=== PATIENT | male | born 1980 | race Caucasian/White ===

== ENCOUNTER → 2017-03-08 | Outpatient (CLI) | payer OTHER ==
[~2017-03-08] VITALS: Ht 190.5 cm; Wt 152.7 kg
[2017-03-08 16:01] VITALS: BP 133/78; PULSE 102; Ht 190.5 cm; Wt 152.7 kg
== END | disposition home or self-care (01) ==
LOC: C.NEUR 15:00
PROVIDERS: ATTEND Physician Assistant
DX: G47.30 Sleep apnea, unspecified (principal)

== ENCOUNTER → 2017-06-04 | Outpatient (CLI) | payer OTHER ==
[~2017-06-04] MED LIST: OPTIRAY 320 IV PRN
--- NOTE | 2017-06-04 11:25 | DIAGNOSTIC IMAGING REPORT ---
ABDOMEN AND PELVIS CT WITH AND WITHOUT IV CONTRAST, UROGRAM PROTOCOL CT DOSE: 2469.81 mGycm HISTORY: HEMATURIA, URINARY URGENCY, NO INFECTION, HX SMOKING TECHNIQUE: Multiaxial CT images of the abdomen and pelvis were performed both before and after the use of intravenous contrast to evaluate the urinary system. Maximal intensity projection images were performed at the workstation by the radiologist. A dose lowering technique was utilized adhering to the principles of ALARA. COMPARISON STUDY: None. FINDINGS: There is a 5 mm stone within the upper pole of the right kidney. No left renal calculi. No ureteral or bladder calculi. No hydronephrosis. No suspicious filling defects seen within the opacified bilateral renal collecting systems, ureters, or bladder. Of note, the distal left ureter is not opacified resulting in suboptimal evaluation of this location. The bladder is only partially opacified. Mild dependent changes seen within the lung bases posteriorly and trace pleural effusions bilaterally. No fractures within the visualized osseous structures. Hepatic stenosis. The gallbladder, spleen, adrenal glands, and pancreas are unremarkable. No bowel wall thickening or obstruction. Normal appendix. No retroperitoneal lymphadenopathy. IMPRESSION: 1. A 5 mm stone within the upper pole of the right kidney. No ureteral stones. No hydronephrosis. 2. No suspicious filling defects seen within the opacified bilateral renal collecting systems, ureters, or bladder. 3. Hepatic steatosis. Electronically signed by: Willard Miller M.D. 06/04/2017 11:23 AM Dictated Date/Time: 06/04/2017 11:15 AM
== END | disposition home or self-care (01) ==
LOC: C.CTS 10:40
PROVIDERS: ATTEND Nurse Practitioner Family
DX: N20.0 Calculus of kidney (principal); R30.0 Dysuria; R31.9 Hematuria, unspecified; Z87.891 Personal history of nicotine dependence

== ENCOUNTER → 2017-10-15 | Outpatient (CLI) | payer OTHER | END | disposition home or self-care (01) | LOC: C.LAB1850 13:48 | PROVIDERS: ATTEND Family Medicine | DX: Z13.220 Encounter for screening for lipoid disorders (principal) ==

== ENCOUNTER 2022-04-21 13:55 | Inpatient (IN) ==
--- NOTE | 2022-04-21 15:22 | ED Triage Note ---
Date of Service April 21, 2022 History of Present Illness This patient was briefly evaluated while in triage. An abbreviated physical exam was performed. This patient is a 42-year-old Male with fever, chills and body aches. Started 9- 10am today. Hx kidney stones. Physical Exam General: With blanket around shoulders, shaking. HEART: RRR LUNGS: CTA Initial orders for labs and / or imaging were placed and patient was placed in the waiting area until a bed is available. Please see further documentation for the full ED course.
--- NOTE | 2022-04-21 15:49 | XRay Report ---
XR chest 1V portable HISTORY: 42 years-old Male Fever/chills acute fever with chills COMPARISON: Chest radiograph 6 11/03/2021 TECHNIQUE: Portable AP view of the chest FINDINGS: Cardiac silhouette is enlarged. Interstitial coarsening is likely technical from technique and patien t body habitus. No pneumothorax, pleural effusion or lobar airspace consolidation. The bones appear n ormal. IMPRESSION: No acute process. ACT 112: Negative or not required by law. The above report was generated using voice recognition software. It may contain grammatical, syntax o r spelling errors. Electronically signed by: Mohan Suarez M.D. 04/21/2022 3:48 PM
[2022-04-21] MEDS ORDERED: ACETAMINOPHEN 500 MG TAB ONE (15:55)
[2022-04-21 16:21] LABS: Basophils # (auto) 0.01 K/uL (0-0.2); Basophils % (auto) 0.1 %; Eosinophils % (auto) 0.5 %; Hematocrit (blood only) 46.9 % (42-52); Hemoglobin 16.6 g/dL (14.0-18.0); Immature Granulocytes # (auto) 0.05 K/uL (0.00-0.02); Immature Granulocytes % (auto) 0.3 %; Lymphocytes # (auto) 1.07 K/uL (1.2-3.4); Lymphocytes % (auto) 5.7 %; Mean Corpuscular Hemoglobin 31.3 pg (25-34); Mean Corpuscular Hgb Conc 35.4 g/dL (32-36); Mean Corpuscular Volume 88.3 fL (80-100); Mean Platelet Volume 9.5 fL (7.4-10.4); Monocytes # (auto) 1.35 K/uL (0.11-0.59); Monocytes % (auto) 7.1 %; Neutrophils # (auto) 16.33 K/uL (1.4-6.5); Neutrophils % (auto) 86.3 %; Platelet Count 235 K/uL (130-400); RDW Coefficient of Variation 12.8 % (11.5-14.5); RDW Standard Deviation 41.4 fL (36.4-46.3); Red Blood Count 5.31 M/uL (4.7-6.1); White Blood Count 18.91 K/uL (4.8-10.8)
[2022-04-21 16:30] LABS: Albumin Globulin Ratio 1.6 (0.9-2); Albumin Level 4.4 gm/dl (3.4-5.0); BUN Creatinine Ratio 18.4 (10-20); Bilirubin,Total 0.8 mg/dl (0.2-1.0); Est GFR (Non-African American) 94.1 ml/min; Globulin 2.7 gm/dl (2.5-4.0); Potassium 3.8 mmol/L (3.5-5.1); Total Protein 7.1 gm/dl (6.0-8.3)
[2022-04-21] MEDS ORDERED: IBUPROFEN 600 MG TAB PO STA (17:03)
[2022-04-21 17:11] LABS: Lyme Ab IgG w/WB Rflx Negative (Negative); Lyme Ab IgM w/WB Rflx Negative (Negative)
[2022-04-21 17:27] LABS: Influenza A virus by PCR Negative (Neg); Influenza B virus by PCR Negative (Neg); RSV by PCR Negative (Neg); SARS CoV2 RNA(COVID-19) InHosp NEGATIVE (Negative)
[2022-04-21] MEDS ORDERED: CEFEPIME 2,000 MG/20 ML VIAL IV STA (17:27)
[2022-04-21] MEDS ORDERED: SODIUM CHLORIDE 0.9% 1000ML 2,000 ML IV ONE (17:35)
--- NOTE | 2022-04-21 17:35 | Emergency Department Note ---
History of Present Illness General Chief complaint: Fever Stated complaint: CHILLS, SHOULDER PAIN, FEVER Time Seen by Provider: 04/21/22 16:48 History of Present Illness Maximum Pain Intensity: 11 42-year-old male presents to the ED with a chief complaint of a fever. The patient states that his symptoms developed today while he was at work. He has some associated nausea. He is not sure where his fever is coming from. The patient denies any upper respiratory symptoms. He complains of a mild intermittent headache. He also complains of myalgias. Denies any sick contacts. Denies any tick exposures or bites. He does report some redness in the back of his left leg. He states that he has been admitted in the past for an infection behind his left leg. He denies any abdominal pains. No flank or back pains. No urinary symptoms. No vomiting or diarrhea. No photosensitivity . Home Medications Medication Instructions Recorded Confirmed Type cholecalciferol (vitamin D3) 25 25 mcg PO QAM 03/08/20 01/21/22 History mcg (1,000 unit) tablet (Vitamin D3) lisinopril 20 1 tab PO QAM 03/08/20 01/21/22 History mg-hydrochlorothiazide 12.5 mg tablet multivitamin 1 tab PO QAM 03/08/20 01/21/22 History metformin 500 mg tablet 1,000 mg PO BID 10/24/21 01/21/22 History Allergies Allergy/AdvReac Type Severity Reaction Status Date / Time No Known Allergies Allergy Verified 01/21/22 12:22 Past Med/Surg History Medical History History of COVID-19 10/20/21 [place]-ASYMPTOMATIC (DONE IN [place] [facility]) AUGUST 2020 TESTED +/NO SYMPTOMS History of kidney stones Hypertension Morbid obesity with BMI of 45.0-49.9, adult Prediabetes ORAL MEDS Sleep apnea USES CPAP Temporomandibular joint disorder RIGHT SIDE CLICKS-NO LOCKING Surgical History H/O adenoidectomy History of anesthesia reaction SLOW TO WAKE UP, LOW OXYGEN POST OP-NEEDED OXYGEN--pt states happened after shoulder/knee surgery History of arthroscopy KNEE-right History of colonoscopy 2020 History of cystoscopy x2--STONE REMOVAL--last 10/2021 History of myringotomy Hx of shoulder surgery RT Hx of vasectomy Family History Mother Family history of diabetes mellitus Hypertension Father Coronary heart disease Hypertension Family hx of colon cancer Brother Family hx of colon cancer Other Heart disease No family history of adverse response to anesthesia Stroke Social History Smoking Status: Former smoker Tobacco Type: Cigarettes Age Started Using Tobacco: 18; Age Quit Using Tobacco: 28; packs per day: 1; Years Smoked: 10; Second Hand Exposure: No; Hx Alcohol Use: Yes Alcohol type: beer and hard liquor Hx Substance Use: No Preferred Language: Lithuanian Communication Ability: Effective Manager Performance Required: No Beliefs That Will Affect Care: None Current Living Situation: Spouse and Family current occupational status: employed current occupation: [employer] Feels Safe at Home: Yes Assistive Devices: CPAP Review of Systems A total of 10 systems reviewed and were otherwise negative Physical Exam Vital Signs Vital Signs - 24 hr 04/21/22 15:17 04/21/22 16:00 04/21/22 17:00 Temperature 36.8 C 39.2 C H 39.7 C H Temperature Source Temporal Artery Scan Oral Oral Pulse Rate 120 H Pulse Rate [Left Radial] 118 H 125 H Pulse Rhythm [Left Radial] Regular Regular Pulse Strength [Left Radial] Normal Normal Respiratory Rate 18 20 20 Respiratory Effort / Characteristics Non-Labored Spontaneous Non-Labored Non-Labored Respiratory Depth Normal Normal Normal Respiratory Pattern Regular Regular Blood Pressure 207/147 H Blood Pressure [Left Arm] 151/102 H 151/80 H Blood Pressure Mean 167 Blood Pressure Mean [Left Arm] 118 103 Blood Pressure Position Sitting Blood Pressure Position [Left Arm] Lying Lying Pulse Oximetry 98 98 94 Oxygen Delivery Method Room Air Room Air Room Air Sepsis Recent Fever Within 48 Hours No Sepsis New/Unexplained Change in Mental Status N/A Sepsis Action Taken by Nursing No Action Required CONSTITUTIONAL/VITAL SIGNS: Reviewed / noted above. GENERAL: Non-toxic in appearance. INTEGUMENTARY: Warm, dry, and Bear [place]. HEAD: Normocephalic. EYES: without scleral icterus or trauma. ENT/OROPHARYNX: clear and moist. LYMPHADENOPATHY/NECK: Is supple without lymphadenopathy or meningismus. RESPIRATORY: Clear to auscultation bilaterally. No increased work of breathing. CARDIOVASCULAR: Regular rate and rhythm. GI/ABDOMEN: Soft and nontender. No organomegaly or pulsatile mass. EXTREMITIES: Warm and well perfused. The patient's left posterior leg just below the calf reveals erythema and increased warmth. There is also a small scratch overlying the area. BACK: No CVA tenderness. NEUROLOGICAL: Intact without focal deficits. PSYCHIATRIC: normal affect. MUSCULOSKELETAL: Normally developed with good muscle tone. TRIAGE NURSING DOCUMENTATION REVIEWED. Course Administered Medications Discontinued Medications Acetaminophen (Acetaminophen 500 Mg Tab) Confirm Administered Dose 1,000 mg .ROUTE .STK-MED ONE Stop: 04/21/22 15:56 Last Admin: 04/21/22 16:03 Dose: 1,000 mg Documented by: [id number] Ibuprofen (Ibuprofen 600 Mg Tab) 600 mg PO NOW STA Stop: 04/21/22 17:04 Last Admin: 04/21/22 17:18 Dose: 600 mg Documented by: [id number] Medical Decision Making Differential Diagnosis Differential includes viral illness, influenza, streptococcal pharyngitis, meningitis, pneumonia, sinusitis, UTI, pyelonephritis, otitis media. Medical Records Attestation: I reviewed the patient's medical records. Home Medications Current Medication List: was personally reviewed by me Laboratory Data Attestation: I reviewed the patient's lab results. Result diagrams: 04/21/22 15:53 04/21/22 15:53 Lab Results 04/21/22 04/21/22 04/21/22 Range/Units 15:53 15:53 15:53 WBC 18.91 H (4.8-10.8) K/uL RBC 5.31 (4.7-6.1) M/uL Hgb 16.6 (14.0-18.0) g/dL Hct 46.9 (42-52) % MCV 88.3 (80-100) fL MCH 31.3 (25-34) pg MCHC 35.4 (32-36) g/dL RDW Std Deviation 41.4 (36.4-46.3) fL RDW Coeff of Nolan 12.8 (11.5-14.5) % Plt Count 235 (130-400) K/uL MPV 9.5 (7.4-10.4) fL Immature Gran % (Auto) 0.3 % Neut % (Auto) 86.3 % Lymph % (Auto) 5.7 % Hand % (Auto) 7.1 % Eos % (Auto) 0.5 % Baso % (Auto) 0.1 % Neut # (Auto) 16.33 H (1.4-6.5) K/uL Lymph # (Auto) 1.07 L (1.2-3.4) K/uL Hand # (Auto) 1.35 H (0.11-0.59) K/uL Eos # (Auto) 0.10 (0-0.5) K/uL Baso # (Auto) 0.01 (0-0.2) K/uL Immature Gran # (Auto) 0.05 H (0.00-0.02) K/uL Sodium 138 (136-145) mmol/L Potassium 3.8 (3.5-5.1) mmol/L Chloride 102 (98-107) mmol/L Carbon Dioxide 28 (21-32) mmol/L Anion Gap 8 (3-11) BUN 18 (6-23) mg/dl Creatinine 0.98 (0.6-1.4) mg/dl Est Cr Clr Drug Dosing 139.0 ml/min Est GFR ( Amer) 109.0 ml/min Est GFR (Non-Af Amer) 94.1 ml/min BUN/Creatinine Ratio 18.4 (10-20) Glucose 108 H (70-99(Fasting)) mg/dl Lactate (0.4-2.0) mmol/L Calcium 10.0 (8.5-10.1) mg/dl Total Bilirubin 0.8 (0.2-1.0) mg/dl AST 46 H (13-39) U/L ALT 64 H (7-52) U/L Alkaline Phosphatase 64 (34-104) U/L Total Protein 7.1 (6.0-8.3) gm/dl Albumin 4.4 (3.4-5.0) gm/dl Globulin 2.7 (2.5-4.0) gm/dl Albumin/Globulin Ratio 1.6 (0.9-2) Lyme Disease IgG Ab Negative (Negative) Lyme Disease IgM Ab Negative (Negative) SARS-CoV-2 (PCR) (Negative) Influenza Type A (PCR) (Neg) Influenza Type B (PCR) (Neg) RSV (RT-PCR) (Neg) 07/05/22 07/05/22 Range/Units 15:53 15:53 WBC (4.8-10.8) K/uL RBC (4.7-6.1) M/uL Hgb (14.0-18.0) g/dL Hct (42-52) % MCV (80-100) fL MCH (25-34) pg MCHC (32-36) g/dL RDW Std Deviation (36.4-46.3) fL RDW Coeff of Nolan (11.5-14.5) % Plt Count (130-400) K/uL MPV (7.4-10.4) fL Immature Gran % (Auto) % Neut % (Auto) % Lymph % (Auto) % Hand % (Auto) % Eos % (Auto) % Baso % (Auto) % Neut # (Auto) (1.4-6.5) K/uL Lymph # (Auto) (1.2-3.4) K/uL Hand # (Auto) (0.11-0.59) K/uL Eos # (Auto) (0-0.5) K/uL Baso # (Auto) (0-0.2) K/uL Immature Gran # (Auto) (0.00-0.02) K/uL Sodium (136-145) mmol/L Potassium (3.5-5.1) mmol/L Chloride (98-107) mmol/L Carbon Dioxide (21-32) mmol/L Anion Gap (3-11) BUN (6-23) mg/dl Creatinine (0.6-1.4) mg/dl Est Cr Clr Drug Dosing ml/min Est GFR ( Amer) ml/min Est GFR (Non-Af Amer) ml/min BUN/Creatinine Ratio (10-20) Glucose (70-99(Fasting)) mg/dl Lactate 3.4 H* (0.4-2.0) mmol/L Calcium (8.5-10.1) mg/dl Total Bilirubin (0.2-1.0) mg/dl AST (13-39) U/L ALT (7-52) U/L Alkaline Phosphatase (34-104) U/L Total Protein (6.0-8.3) gm/dl Albumin (3.4-5.0) gm/dl Globulin (2.5-4.0) gm/dl Albumin/Globulin Ratio (0.9-2) Lyme Disease IgG Ab (Negative) Lyme Disease IgM Ab (Negative) SARS-CoV-2 (PCR) NEGATIVE (Negative) Influenza Type A (PCR) Negative (Neg) Influenza Type B (PCR) Negative (Neg) RSV (RT-PCR) Negative (Neg) Imaging Data Radiologist's Impression: Chest X-Ray 04/21/22 15:19 XR chest 1V portable HISTORY: 42 years-old Male Fever/chills acute fever with chills COMPARISON: Chest radiograph 6 11/03/2021 TECHNIQUE: Portable AP view of the chest FINDINGS: Cardiac silhouette is enlarged. Interstitial coarsening is likely technical from technique and patient body habitus. No pneumothorax, pleural effusion or lobar airspace consolidation. The bones appear normal. IMPRESSION: No acute process. ACT 112: Negative or not required by law. The above report was generated using voice recognition software. It may contain grammatical, syntax or spelling errors. Electronically signed by: Mohan Suarez M.D. 04/21/2022 3:48 PM ECG Data Additional Comments: Monitor: Per my interpretation there is a sinus tachycardia at a rate of 120. No PVCs. MDM Narrative 42-year-old male presents with a fever. The patient has tachycardia in addition to his fever. He has myalgias and some nausea. He does have some erythema and increased warmth in the left posterior leg concerning for cellulitis. The patient's overall appearance is that of sepsis with cellulitis of the left leg, fever and tachycardia. He could be bacteremic. He was given some oral Tylenol here when he first arrived. His fever actually increased despite the Tylenol. He was given some ibuprofen p.o. He was also given IV cefepime empirically. The patient was also given 2 L normal saline IV for his tachycardia. His white blood cell count is 18,000. Chest x-ray was negative. A lactic acid was 3.4. He does have a mild transaminitis but he states that he has fatty liver disease. A COVID test and flu test were negative. Because the patient's overall appearance and clinical findings, the patient will be seen by the hospitalist for further evaluation and care. Impression & Plan Cellulitis of left leg, Sepsis Discharge Plan Visit Data Chief Complaint: Fever Stated Complaint: CHILLS, SHOULDER PAIN, FEVER ED Provider: Zeus Marinelli Discharge Problem: Cellulitis of left leg, Sepsis Patient Disposition: Being Evaluated by Hospitalist Forms Stand Alone Forms: [facility] Prescriptions Prescriptions: No Action metformin 500 mg tablet 1,000 mg PO BID RF: 0 multivitamin Tablet 1 tab PO QAM RF: 0 cholecalciferol (vitamin D3) [Vitamin D3] 25 mcg (1,000 unit) Tablet 25 mcg PO QAM RF: 0 lisinopril-hydrochlorothiazide 20-12.5 mg Tablet 1 tab PO QAM RF: 0 Referrals Referrals: Willard Mora MD [Primary Care Provider] -
--- NOTE | 2022-04-21 18:31 | History & Physical Report ---
Date of Service April 21, 2022 Assessment & Plan (1) Cellulitis of left leg: Plan: - Received cefepime in ED, will continue coverage with Rocephin and will add on daptomycin for now pending MRSA swab. - Received 2L NS bolus in ED, will continue with IVF overnight. - Will add on CT tib/fib w/o contrast to r/o necrotizing fascitis, as well as LLE doppler to rule out DVT.. - Reviewed records from patient's hospital stay at [facility] last May--was admitted to ICU for septic shock secondary to LLE cellulitis. Blood cultures negative then, had spine MRI and LP at that time given severity--unrevealing. Resovled after antibiotics. - Checking IgG, IgM, and IgA to look for IgG deficiency to further investigate patient's predisposition to severe infections. (2) Sepsis: Plan: - LLE cellulitis is source, abx as above. - WBC 18.91, initial lactate 3.4, now 2.1 after initial IVF bolus, elevated LFTs. - Continue to monitor CBC and CMP on AM labs, repeat lactate until < 2.0. - NS @ 150 cc/hr ordered x2 L. (3) Elevated LFTs: Plan: - AST 46, ALT 64, without known liver disease. W/o abd pain, n/v. - Follow on am CMP. (4) LISA (obstructive sleep apnea): Plan: - Uses CPAP at night, brought home machine with him. (5) Hypertension: Plan: - Continue lisinopril/HCTZ daily. (6) Prediabetes: Plan: - Hold metformin for tonight. - Will order Accuchecks and SSI. - A1c in AM. (7) Morbid obesity with BMI of 45.0-49.9, adult: Plan: BMI 45.8 Plan: - Admit to med/tele. - SCDs for DVT ppx. - Full Code. History of Present Illness Chief Complaint: chills since this morning with redness, swelling of left leg Primary Care Provider: Willard Mora MD Garrett Wetzel is a 42-year-old male with LISA, hypertension, and pre-diabetes who presents today from home with fever for the past day. He was at at work this morning when suddenly he became very cold to the point that he was shaking. He developed body aches and noted some increasing redness and swelling of his left lower leg. He has no knowledge of any injury, wound, or animal/insect bite to his leg. Did not notice any symptoms until today. He does have chronic swelling to the left leg after being hospitalized last year for a cellulitis of the same leg which caused venous damage, however appears a bit more swollen today but not drastically different than baseline. He does not have any chest pain or tightness, shortness of breath, palpitations, calf pain, or history of blood briseida ts. He had an extensive stay in [facility] ICU last May for septic shock secondary to a LLE cellulitis. Blood cultures remained negative then, had extensive workup which included MRI of spine and LP which were unrevealing. He had resolution with IV antibiotics. In ED, is febrile and tachycardic, mildly hypertensive. SPO2 >95% on room air. Significant for WBC 18.91, lactate 2.1. AST 46, ALT 64. Babesia labs pending. Anaplasmosis, Lyme, COVID/flu/RSV all negative. CXR unremarkable. Blood cultures sent. Allergies Allergy/AdvReac Type Severity Reaction Status Date / Time No Known Allergies Allergy Verified 04/21/22 17:46 Home Medications Medication Instructions Recorded Confirmed Type cholecalciferol (vitamin D3) 25 25 mcg PO QAM 03/08/20 04/21/22 History mcg (1,000 unit) tablet (Vitamin D3) multivitamin 1 tab PO QAM 03/08/20 04/21/22 History metformin 500 mg tablet 1,000 mg PO BID 10/24/21 04/21/22 History lisinopril 20 1 tab PO QAM 04/21/22 04/21/22 History mg-hydrochlorothiazide 25 mg tablet Past Med/Surg History Medical History (Updated 04/21/22 @ 20:06 by Carlene Valentin PA-C) History of COVID-19 10/20/21 [place]-ASYMPTOMATIC (DONE IN [place] ER) AUGUST 2020 TESTED +/NO SYMPTOMS History of kidney stones Hypertension Morbid obesity with BMI of 45.0-49.9, adult Prediabetes ORAL MEDS Sleep apnea USES CPAP Temporomandibular joint disorder RIGHT SIDE CLICKS-NO LOCKING Surgical History H/O adenoidectomy History of anesthesia reaction SLOW TO WAKE UP, LOW OXYGEN POST OP-NEEDED OXYGEN--pt states happened after shoulder/knee surgery History of arthroscopy KNEE-right History of colonoscopy 2020 History of cystoscopy x2--STONE REMOVAL--last 10/2021 History of myringotomy Hx of shoulder surgery RT Hx of vasectomy Family History Mother Family history of diabetes mellitus Hypertension Father Coronary heart disease Hypertension Family hx of colon cancer Brother Family hx of colon cancer Other Heart disease No family history of adverse response to anesthesia Stroke Social History Smoking Status: Never smoker Tobacco Type: Cigarettes Age Started Using Tobacco: 18; Age Quit Using Tobacco: 28; packs per day: 1; Years Smoked: 10; Second Hand Exposure: No; Hx Alcohol Use: Yes Alcohol type: beer Hx Substance Use: No Preferred Language: German Communication Ability: Effective 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 Beliefs That Will Affect Care: None Current Living Situation: Family Current Living Situation Comment: lives with and 2 children in a 2 story home current occupational status: employed current occupation: [employer] Other Information That Helps Us Care for You: No Feels Safe at Home: Yes Safety Concerns: Feels Safe At This Time Assistive Devices: CPAP Review of Systems Review of Systems: Constitutional: fever/chills and myalgias starting this a.m.; no weakness, fatigue, anorexia, night sweats Eyes: No diplopia, no worsening or blurred vision ENT: normal hearing, no trouble swallowing Respiratory: No cough, sputum, dyspnea at rest or on exertion Cardiovascular: No chest pain, tightness or palpitations Abdomen: Mild nausea; no pain, vomiting, diarrhea or constipation : Denies dysuria, hematuria, increased urgency/frequency, urinary retention Musculoskeletal: No joint pain, calf pain, swelling Neurologic: No weakness, numbness/tingling, or balance problems Psychiatric: No anxiety or depression Skin: Swelling and redness still bilaterally since today without itch Physical Exam Physical Exam: General: awake, alert, no apparent distress, Head: Normocephalic, atraumatic ENT: PERRL, EOMI, no pharyngeal exudate, mucous membranes moist Chest: Clear to auscultation, on room air, no adventitious breath sounds Cardiac: Regular rate and rhythm, no murmur, no JVD, normal peripheral pulses, good capillary refill Abdominal: NABS x 4 quadrants, soft, nontender to palpation, no rebound, guarding or tenderness Extremities: Normal inspection, no peripheral edema or erythema, calfs nontender to palpation Psych: Normal mood and affect Neuro: AAO x 3, strength intact bilaterally and rated 5/5, no motor deficits, speech is clear, no peripheral sensory deficits Skin: Face is very flushed; LLE with edema, erythema, without any obvious puncture wound or infection; there is a spot of dark red/brown skin discoloration on the medial aspect of the LLE that, when compared to pictures provided by patient of cellulitis infection last year, are consistent with where a blister had formed and subsequently ruptured Results & Data Results & Data ([facility]) Vital Signs (Past 12 Hours) Vital Signs Temp Pulse Pulse Resp BP BP Pulse Ox 04/21/22 18:00 40.1 C H 122 H 22 94 04/21/22 17:00 39.7 C H 125 H 20 151/80 H 94 04/21/22 16:00 39.2 C H 118 H 20 151/102 H 98 04/21/22 15:17 36.8 C 120 H 18 207/147 H 98 Laboratory Results Abnormal lab results 04/21/22 04/21/22 04/21/22 Range/Units 15:53 15:53 15:53 WBC 18.91 H (4.8-10.8) K/uL Neut # (Auto) 16.33 H (1.4-6.5) K/uL Lymph # (Auto) 1.07 L (1.2-3.4) K/uL Keith # (Auto) 1.35 H (0.11-0.59) K/uL Immature Gran # (Auto) 0.05 H (0.00-0.02) K/uL Glucose 108 H (70-99(Fasting)) mg/dl Lactate 3.4 H* (0.4-2.0) mmol/L AST 46 H (13-39) U/L ALT 64 H (7-52) U/L 04/21/22 Range/Units 17:40 WBC (4.8-10.8) K/uL Neut # (Auto) (1.4-6.5) K/uL Lymph # (Auto) (1.2-3.4) K/uL Keith # (Auto) (0.11-0.59) K/uL Immature Gran # (Auto) (0.00-0.02) K/uL Glucose (70-99(Fasting)) mg/dl Lactate 2.1 H* (0.4-2.0) mmol/L AST (13-39) U/L ALT (7-52) U/L Diagnostic Findings Chest X-Ray 04/21/22 15:19 XR chest 1V portable HISTORY: 42 years-old Male Fever/chills acute fever with chills COMPARISON: Chest radiograph 6 11/03/2021 TECHNIQUE: Portable AP view of the chest FINDINGS: Cardiac silhouette is enlarged. Interstitial coarsening is likely technical from technique and patient body habitus. No pneumothorax, pleural effusion or lobar airspace consolidation. The bones appear normal. IMPRESSION: No acute process. ACT 112: Negative or not required by law. The above report was generated using voice recognition software. It may contain grammatical, syntax or spelling errors. Electronically signed by: Mohan Suarez M.D. 04/21/2022 3:48 PM Code Status & VTE Plan Code Status Full code Supervising Physician Co-Signing Physician Notes Attending Attestation & Admission Note: Pt seen/examined, chart reviewed, care plan d/w BILL Valentin. I agree with the adrian components of her documentation. Pleasant 42yo male with morbid obesity, pre-DM, and septic shock 2nd to LLE cellulitis 05/2021 ([facility] - required ICU stay, and 9-days total in hospital) presents with fever, chills, and mild LLE discomfort all starting today. Notes mild pain to the LLE when placing weight on the leg. Denies sick contacts although he works at [employer]. Did travel to [place] recently but otherwise no extensive travel. Denies pulmonary symptoms. Denies URI symptoms. No dysuria. Patient states that when he was admitted to [facility] for his sepsis the LLE cellulitis was minor if any, and as the stay progressed, the cellulitis got markedly worse. Records were reviewed from the [place] stay - was on cephalosporin therapy for his cellulitis. D/c on keflex/doxy. Blood cx's were negative. PMH/PSH/allergies/meds/sochx/famhx - reviewed Tm 40, tachy, BP wnl gen - morbidly obese, looks sick but nontoxic, NAD skin - face is severely erythematous (entire face); LLE - faint erythema posterior leg from calf level down to just above ankle; mild hyperpigmentation (venous stasis changes) anterior L martines; mild warmth in the posterior leg; no crepitus musculo - left hip, left knee, and left ankle with NO pain upon passive ROM neck - no JVD mouth - MM dry heart - tachy, s1 s2 lungs - CTA b/l abd - soft NT ND ext - 1+ edema left leg, trace edema right leg, pulses 2+ b/l labs reviewed cxr wnl COVID neg anaplasmosis smear neg lyme neg blood cx's dispatched A/P: 1. sepsis -- likely due to #2 below 2. probable early LLE cellulitis 3. h/o septic shock and prolonged hospitalization - [facility], 05/2021 - due to severe LLE cellulitis 4. morbid obesity 5. pre-DM 6. ?venous insufficiency - chronic - LLE? 7. severe erythema of face - 2nd to fever? doubt parvo; vanco had been ordered in ER but was NOT given thus not a "red man" reaction IV rocephin/IV daptomycin for #1, #2 serial exams of LLE doppler of LLE to r/o DVT CT tib-fib of LLE - r/o nec fas findings, abscess, other pathology pain meds IV fluids given recurrent, severe skin infections check IgG, IgA, IgM to be complete if normal his risk factors for this include morbid obesity, pre-DM, +/- venous insufficiency follow blood cx's Brent Camp MD PG Care Time/CCT Total # of Minutes Spent Total Time Spent with Patient: Total time spent is greater than 50% in coordination of care (as documented) at patient's floor/unit and/or counseling patient: Coding Level of Care Code 01161 Initial Inpt Care Lvl 2 Diagnoses Cellulitis of left leg L03.116 Sepsis A41.9 LISA (obstructive sleep apnea) G47.33 Hypertension I10 Prediabetes R73.03 Elevated LFTs R79.89 Morbid obesity with BMI of 45.0-49.9, adult E66.01; Z68.42
[2022-04-21] MEDS ORDERED: VANCOMYCIN CONSULT ACTIVE PRN (18:50)
[2022-04-21] MEDS ORDERED: VANCOMYCIN HCL 2,500 MG in SODIUM CHLORIDE 0.9% 500 ML IV ONE (18:50)
[2022-04-21] MEDS: DAPTOmycin 400 MG in SYRINGE 0 ML IV SCH (19:52)
[2022-04-21 20:27] LABS: Immunoglobulin A 113.4 mg/dl (70-400); Immunoglobulin G 833.9 mg/dl (635-1741)
[2022-04-21] MEDS ORDERED: GLUCOSE 10 TAB/TUBE PO PRN (20:34)
[2022-04-21] MEDS ORDERED: DAPTOmycin 400 MG in SYRINGE 0 ML IV SCH (20:34)
[2022-04-21] MEDS ORDERED: GLUCOSE 40% GEL 15 GM TUBE PO PRN (20:34)
[2022-04-21] MEDS ORDERED: CARBOHYDRATES FOR HYPOGLYCEMIA PO PRN (20:34)
[2022-04-21] MEDS ORDERED: DEXTROSE 50% 50 ML SYRINGE IV PRN (20:34)
[2022-04-21] MEDS ORDERED: POLYETHYLENE (MIRALAX) 17 GM PACK PO PRN (20:34)
[2022-04-21] MEDS ORDERED: ONDANSETRON INJ 2 MG/ML 2 ML VIAL IV PRN (20:34)
[2022-04-21] MEDS ORDERED: GLUCAGON FOR INJ 1 MG VIAL SQ PRN (20:34)
[2022-04-21] MEDS: SODIUM CHLORIDE 0.9% 1000ML 1,000 ML IV SCH (20:52)
[2022-04-21] MEDS: INSULIN ASPART PER UNIT SC SCH (21:50)
[2022-04-21] MEDS: cefTRIAXone SODIUM 2,000 MG in DEXTROSE 5% 50 ML IV SCH (22:01)
[2022-04-22] MEDS: SODIUM CHLORIDE 0.9% 1000ML 1,000 ML IV SCH (03:36)
--- NOTE | 2022-04-22 06:57 | Ultrasound Report ---
ULTRASOUND LEFT LOWER EXTREMITY VENOUS CLINICAL HISTORY: Left leg swelling and erythema. COMPARISON STUDY: No priors. TECHNIQUE: Real-time, grayscale, and color Doppler sonography of the deep veins of the left lower ext remity was performed from the inguinal crease to the calf. Compression and augmentation were utilized . FINDINGS: There is no sonographic evidence of deep venous thrombosis identified in the left lower ext remity. The common femoral, superficial femoral, and popliteal veins are patent and normally compress ible. The greater saphenous vein and the profunda femoris vein at the junction with the common femora l vein are clear. The visualized calf veins are patent. Prominent left inguinal lymph nodes are incid entally noted. IMPRESSION: 1. There is no sonographic evidence of deep venous thrombosis identified in the left lower extremity. 2. Prominent left inguinal lymph nodes are nonspecific and likely reactive. ACT 112: Negative or not required by law. Electronically signed by: Maikol Schmitt M.D. 04/22/2022 6:56 AM
[2022-04-22 07:19] LABS: Hematocrit (blood only) 39.3 % (42-52); Hemoglobin 13.6 g/dL (14.0-18.0); Mean Corpuscular Hemoglobin 30.2 pg (25-34); Mean Corpuscular Hgb Conc 34.6 g/dL (32-36); Mean Corpuscular Volume 87.3 fL (80-100); Platelet Count 172 K/uL (130-400); RDW Coefficient of Variation 13.2 % (11.5-14.5); RDW Standard Deviation 42.4 fL (36.4-46.3); White Blood Count 23.57 K/uL (4.8-10.8)
[2022-04-22 07:34] LABS: Albumin Globulin Ratio 1.4 (0.9-2); Albumin Level 3.3 gm/dl (3.4-5.0); BUN Creatinine Ratio 14.6 (10-20); Bilirubin,Total 0.7 mg/dl (0.2-1.0); C Reactive Protein 13.46 mg/dl (0-0.5); Calcium 8.3 mg/dl (8.5-10.1); Creatinine Clr Calc Pharmacy 177.3 ml/min; Est GFR (African American) 121.4 ml/min; Est GFR (Non-African American) 104.7 ml/min; Globulin 2.3 gm/dl (2.5-4.0); Potassium 3.3 mmol/L (3.5-5.1); Total Protein 5.6 gm/dl (6.0-8.3)
[2022-04-22 07:35] LABS: Basophils # (auto) 0.02 K/uL (0-0.2); Basophils % (auto) 0.1 %; Eosinophils # (auto) 0.01 K/uL (0-0.5); Immature Granulocytes # (auto) 0.06 K/uL (0.00-0.02); Immature Granulocytes % (auto) 0.3 %; Lymphocytes # (auto) 1.23 K/uL (1.2-3.4); Lymphocytes % (auto) 5.2 %; Monocytes # (auto) 1.36 K/uL (0.11-0.59); Monocytes % (auto) 5.8 %; Neutrophils # (auto) 20.89 K/uL (1.4-6.5); Neutrophils % (auto) 88.6 %
[2022-04-22] MEDS: ACETAMINOPHEN 325 MG TAB PO PRN ×2 (07:37→23:15)
[2022-04-22 07:50] LABS: Estimated Average Glucose 131 mg/dl; Hemoglobin A1C 6.2 % (4.5-5.6)
[2022-04-22] MEDS ORDERED: POTASSIUM CHLORIDE 20 MEQ/15 ML UDC PO STA (08:03)
[2022-04-22] MEDS: INSULIN ASPART PER UNIT SC SCH ×4 (08:42→22:47)
[2022-04-22] MEDS: CHOLECALCIFEROL 1,000 UNITS 25 MCG TAB PO SCH (08:47)
[2022-04-22] MEDS ORDERED: LISINOPRIL/HCTZ 20/25MG 1 TAB PO SCH (09:00)
--- NOTE | 2022-04-22 09:10 | CT Scan Report ---
CT SCAN OF THE LEFT TIBIA AND FIBULA WITHOUT IV CONTRAST CLINICAL HISTORY: Left leg swelling and erythema. COMPARISON STUDY: No priors. TECHNIQUE: CT scan of the left tibia and fibula is performed from the knee to the ankle. Images are r eviewed in the axial, sagittal, coronal planes. IV contrast was not administered for this examination . A dose lowering technique was utilized adhering to the principles of ALARA. Note that interpretatio n is suboptimal without plain film correlate. CT DOSE: 493.92 mGy.cm FINDINGS: The skeletal structures are well mineralized. There is no evidence of tibial or fibular fra cture. There is no bony erosion or periostitis. No lytic or blastic lesion is seen. The knee and ankl e joints are grossly maintained. An os navicularis is incidentally noted. No soft tissue gas is seen throughout the left calf. The regional musculature is normal in appearance. Subcutaneous infiltration and fluid is seen in the pretibial soft tissues. This extends inferiorly around the ankle. No organi zed/drainable fluid collection is identified. No hematoma is seen. The Achilles tendon is intact as v isualized. IMPRESSION: 1. No acute bony abnormality is seen involving the left tibia or fibula. 2. There is pretibial soft tissues infiltration and subcutaneous fluid. This could represent contusio n or possibly cellulitis. Clinical correlation will be required. 3. There is no soft tissue gas, and no organized fluid collection is seen to suggest abscess. ACT 112: Negative or not required by law. Dictated: 04/22/2022 8:30 AM Transcribed: 04/22/2022 9:02 AM Lola [id number] [email or web address] Electronically signed by: Maikol Schmitt M.D. 04/22/2022 9:09 AM
[2022-04-22] MEDS: ENOXAPARIN INJ 40 MG/0.4 ML SYR SQ SCH ×2 (11:09→22:07)
[2022-04-22] MEDS: IBUPROFEN 600 MG TAB PO PRN (15:27)
--- NOTE | 2022-04-22 16:03 | Hospitalist Progress Note ---
Date of Service April 22, 2022 Assessment & Plan (1) Cellulitis of left leg: Plan: -Clinically not necrotizing fasciitis; continue current antibiotics Follow CRP (2) Sepsis: Plan: Without organ dysfunction, without septic shocksecondary to cellulitis; as above (3) Elevated LFTs: Plan: -Improvedfollow. (4) LISA (obstructive sleep apnea): Plan: - Uses CPAP at night, brought home machine with him. (5) Hypertension: Plan: - Hold diuretic (being given fluids), low-dose of lisinopril for now, follow. (6) Prediabetes: Plan: - Hold metformin for tonight. - Will order Accuchecks and SSI. - A1c appears pending (7) Morbid obesity with BMI of 45.0-49.9, adult: Plan: BMI 45.8adds to complexity; enoxaparin for DVT prevention (8) Hypokalemia: Plan: Replace Admission and Anticipated Discharge Date Admission Date: April 21, 2022 Subjective Follow-up of fever, left lower extremity erythemaleft leg feels more tense, fever better Physical Exam Physical Exam: Constitutional and general: No acute distress, looks biologic age Head and face: No puffiness, atraumatic Eyes: No scleral icterus, extraocular movements normal Neck: Supple, no JVD Musculoskeletal: No acute joint swelling, no bony abnormalities Skin/dermatologic/integument: No rash, no purpura Hematologic and lymphatic: pallor +, no petechia Gastrointestinal/abdomen: Nondistended, soft, nonacute Neurologic: Cranial nerves intact, nonfocal Psychiatry: Awake, alert, pleasant, communicative Cardiovascular: Heart rhythm regular, no rub, no murmur, no gallop Respiratory: Chest movements equal, no use of accessory muscles, no adventitious sounds Extremities: Prominent erythema left leg Results & Data Results & Data ([facility]) Vital Signs (Past 12 Hours) Vital Signs Temp Pulse Pulse Resp BP Pulse Ox 04/22/22 15:25 37.4 C 04/22/22 15:13 36.8 C 89 20 102/68 98 04/22/22 14:35 36.7 C 80 18 138/81 92 04/22/22 09:52 37.2 C 04/22/22 08:33 37.6 C H 04/22/22 07:20 38.8 C H 96 H 18 145/55 H 93 04/22/22 06:09 36.8 C Laboratory Results Laboratory Results - last 24 hr 04/21/22 04/21/22 04/21/22 15:53 15:53 15:53 WBC 18.91 H RBC 5.31 Hgb 16.6 Hct 46.9 MCV 88.3 MCH 31.3 MCHC 35.4 RDW Std Deviation 41.4 RDW Coeff of Nolan 12.8 Plt Count 235 MPV 9.5 Immature Gran % (Auto) 0.3 Neut % (Auto) 86.3 Lymph % (Auto) 5.7 [place] % (Auto) 7.1 Eos % (Auto) 0.5 Baso % (Auto) 0.1 Neut # (Auto) 16.33 H Lymph # (Auto) 1.07 L [place] # (Auto) 1.35 H Eos # (Auto) 0.10 Baso # (Auto) 0.01 Immature Gran # (Auto) 0.05 H Sodium 138 Potassium 3.8 Chloride 102 Carbon Dioxide 28 Anion Gap 8 BUN 18 Creatinine 0.98 Est Cr Clr Drug Dosing 139.0 Est GFR ( Amer) 109.0 Est GFR (Non-Af Amer) 94.1 BUN/Creatinine Ratio 18.4 Glucose 108 H POC Glucose Estimat Average Glucose Hemoglobin A1c Lactate Calcium 10.0 Total Bilirubin 0.8 AST 46 H ALT 64 H Alkaline Phosphatase 64 C-Reactive Protein Total Protein 7.1 Albumin 4.4 Globulin 2.7 Albumin/Globulin Ratio 1.6 Procalcitonin Nasal Screen MRSA (PCR) IgG IgA IgM Anaplasma Smear A. phagocytophilum DNA Babesia Smear Babesia microti IgG Ab Babesia microti IgM Ab Babesia Interpretation Lyme Disease IgG Ab Negative Lyme Disease IgM Ab Negative SARS-CoV-2 (PCR) Influenza Type A (PCR) Influenza Type B (PCR) RSV (RT-PCR) 04/21/22 04/21/22 04/21/22 15:53 15:53 15:53 WBC RBC Hgb Hct MCV MCH MCHC RDW Std Deviation RDW Coeff of Nolan Plt Count MPV Immature Gran % (Auto) Neut % (Auto) Lymph % (Auto) [place] % (Auto) Eos % (Auto) Baso % (Auto) Neut # (Auto) Lymph # (Auto) [place] # (Auto) Eos # (Auto) Baso # (Auto) Immature Gran # (Auto) Sodium Potassium Chloride Carbon Dioxide Anion Gap BUN Creatinine Est Cr Clr Drug Dosing Est GFR ( Amer) Est GFR (Non-Af Amer) BUN/Creatinine Ratio Glucose POC Glucose Estimat Average Glucose Hemoglobin A1c Lactate 3.4 H* Calcium Total Bilirubin AST ALT Alkaline Phosphatase C-Reactive Protein Total Protein Albumin Globulin Albumin/Globulin Ratio Procalcitonin Nasal Screen MRSA (PCR) IgG IgA IgM Anaplasma Smear See Comment A. phagocytophilum DNA Babesia Smear See Comment Babesia microti IgG Ab Babesia microti IgM Ab Babesia Interpretation Lyme Disease IgG Ab Lyme Disease IgM Ab SARS-CoV-2 (PCR) NEGATIVE Influenza Type A (PCR) Negative Influenza Type B (PCR) Negative RSV (RT-PCR) Negative 04/21/22 04/21/22 04/21/22 15:53 16:33 17:40 WBC RBC Hgb Hct MCV MCH MCHC RDW Std Deviation RDW Coeff of Nolan Plt Count MPV Immature Gran % (Auto) Neut % (Auto) Lymph % (Auto) [place] % (Auto) Eos % (Auto) Baso % (Auto) Neut # (Auto) Lymph # (Auto) [place] # (Auto) Eos # (Auto) Baso # (Auto) Immature Gran # (Auto) Sodium Potassium Chloride Carbon Dioxide Anion Gap BUN Creatinine Est Cr Clr Drug Dosing Est GFR ( Amer) Est GFR (Non-Af Amer) BUN/Creatinine Ratio Glucose POC Glucose Estimat Average Glucose Hemoglobin A1c Lactate 2.1 H* Calcium Total Bilirubin AST ALT Alkaline Phosphatase C-Reactive Protein Total Protein Albumin Globulin Albumin/Globulin Ratio Procalcitonin 0.39 Nasal Screen MRSA (PCR) IgG 833.9 IgA 113.4 IgM 46.0 Anaplasma Smear A. phagocytophilum DNA Babesia Smear Babesia microti IgG Ab Babesia microti IgM Ab Babesia Interpretation Lyme Disease IgG Ab Lyme Disease IgM Ab SARS-CoV-2 (PCR) Influenza Type A (PCR) Influenza Type B (PCR) RSV (RT-PCR) 04/21/22 04/21/22 04/21/22 18:54 18:54 20:55 WBC RBC Hgb Hct MCV MCH MCHC RDW Std Deviation RDW Coeff of Nolan Plt Count MPV Immature Gran % (Auto) Neut % (Auto) Lymph % (Auto) [place] % (Auto) Eos % (Auto) Baso % (Auto) Neut # (Auto) Lymph # (Auto) [place] # (Auto) Eos # (Auto) Baso # (Auto) Immature Gran # (Auto) Sodium Potassium Chloride Carbon Dioxide Anion Gap BUN Creatinine Est Cr Clr Drug Dosing Est GFR ( Amer) Est GFR (Non-Af Amer) BUN/Creatinine Ratio Glucose POC Glucose 109 H Estimat Average Glucose Hemoglobin A1c Lactate Calcium Total Bilirubin AST ALT Alkaline Phosphatase C-Reactive Protein Total Protein Albumin Globulin Albumin/Globulin Ratio Procalcitonin Nasal Screen MRSA (PCR) IgG IgA IgM Anaplasma Smear A. phagocytophilum DNA Pending Babesia Smear Babesia microti IgG Ab Pending Babesia microti IgM Ab Pending Babesia Interpretation Pending Lyme Disease IgG Ab Lyme Disease IgM Ab SARS-CoV-2 (PCR) Influenza Type A (PCR) Influenza Type B (PCR) RSV (RT-PCR) 04/21/22 04/22/22 04/22/22 22:10 06:55 06:55 WBC 23.57 H RBC 4.50 L Hgb 13.6 L D Hct 39.3 L MCV 87.3 MCH 30.2 MCHC 34.6 RDW Std Deviation 42.4 RDW Coeff of Nolan 13.2 Plt Count 172 MPV 9.0 Immature Gran % (Auto) 0.3 Neut % (Auto) 88.6 Lymph % (Auto) 5.2 [place] % (Auto) 5.8 Eos % (Auto) 0.0 Baso % (Auto) 0.1 Neut # (Auto) 20.89 H Lymph # (Auto) 1.23 [place] # (Auto) 1.36 H Eos # (Auto) 0.01 Baso # (Auto) 0.02 Immature Gran # (Auto) 0.06 H Sodium 136 Potassium 3.3 L Chloride 106 Carbon Dioxide 26 Anion Gap 4 BUN 13 Creatinine 0.89 Est Cr Clr Drug Dosing 177.3 Est GFR ( Amer) 121.4 Est GFR (Non-Af Amer) 104.7 BUN/Creatinine Ratio 14.6 Glucose 123 H POC Glucose Estimat Average Glucose Hemoglobin A1c Lactate Calcium 8.3 L Total Bilirubin 0.7 AST 28 ALT 42 Alkaline Phosphatase 42 C-Reactive Protein 13.46 H Total Protein 5.6 L D Albumin 3.3 L Globulin 2.3 L Albumin/Globulin Ratio 1.4 Procalcitonin Nasal Screen MRSA (PCR) Negative IgG IgA IgM Anaplasma Smear A. phagocytophilum DNA Babesia Smear Babesia microti IgG Ab Babesia microti IgM Ab Babesia Interpretation Lyme Disease IgG Ab Lyme Disease IgM Ab SARS-CoV-2 (PCR) Influenza Type A (PCR) Influenza Type B (PCR) RSV (RT-PCR) 04/22/22 04/22/22 04/22/22 06:55 06:55 08:17 WBC RBC Hgb Hct MCV MCH MCHC RDW Std Deviation RDW Coeff of Nolan Plt Count MPV Immature Gran % (Auto) Neut % (Auto) Lymph % (Auto) [place] % (Auto) Eos % (Auto) Baso % (Auto) Neut # (Auto) Lymph # (Auto) [place] # (Auto) Eos # (Auto) Baso # (Auto) Immature Gran # (Auto) Sodium Potassium Chloride Carbon Dioxide Anion Gap BUN Creatinine Est Cr Clr Drug Dosing Est GFR ( Amer) Est GFR (Non-Af Amer) BUN/Creatinine Ratio Glucose POC Glucose 115 H Estimat Average Glucose 131 Hemoglobin A1c 6.2 H Lactate 1.0 Calcium Total Bilirubin AST ALT Alkaline Phosphatase C-Reactive Protein Total Protein Albumin Globulin Albumin/Globulin Ratio Procalcitonin Nasal Screen MRSA (PCR) IgG IgA IgM Anaplasma Smear A. phagocytophilum DNA Babesia Smear Babesia microti IgG Ab Babesia microti IgM Ab Babesia Interpretation Lyme Disease IgG Ab Lyme Disease IgM Ab SARS-CoV-2 (PCR) Influenza Type A (PCR) Influenza Type B (PCR) RSV (RT-PCR) 04/22/22 12:12 WBC RBC Hgb Hct MCV MCH MCHC RDW Std Deviation RDW Coeff of Nolan Plt Count MPV Immature Gran % (Auto) Neut % (Auto) Lymph % (Auto) [place] % (Auto) Eos % (Auto) Baso % (Auto) Neut # (Auto) Lymph # (Auto) [place] # (Auto) Eos # (Auto) Baso # (Auto) Immature Gran # (Auto) Sodium Potassium Chloride Carbon Dioxide Anion Gap BUN Creatinine Est Cr Clr Drug Dosing Est GFR ( Amer) Est GFR (Non-Af Amer) BUN/Creatinine Ratio Glucose POC Glucose 122 H Estimat Average Glucose Hemoglobin A1c Lactate Calcium Total Bilirubin AST ALT Alkaline Phosphatase C-Reactive Protein Total Protein Albumin Globulin Albumin/Globulin Ratio Procalcitonin Nasal Screen MRSA (PCR) IgG IgA IgM Anaplasma Smear A. phagocytophilum DNA Babesia Smear Babesia microti IgG Ab Babesia microti IgM Ab Babesia Interpretation Lyme Disease IgG Ab Lyme Disease IgM Ab SARS-CoV-2 (PCR) Influenza Type A (PCR) Influenza Type B (PCR) RSV (RT-PCR) PG Care Time/CCT Total # of Minutes Spent Total Time Spent with Patient: Total time spent is greater than 50% in coordination of care (as documented) at patient's floor/unit and/or counseling patient: Coding Level of Care Code 84972 Subseq Hosp Care Lvl 2 Diagnoses Cellulitis of left leg L03.116 Sepsis A41.9 Elevated LFTs R79.89 LISA (obstructive sleep apnea) G47.33 Hypertension I10 Prediabetes R73.03 Morbid obesity with BMI of 45.0-49.9, adult E66.01; Z68.42 Hypokalemia E87.6
[2022-04-22] MEDS: DAPTOmycin 400 MG in SYRINGE 0 ML IV SCH (20:18)
[2022-04-22] MEDS: cefTRIAXone SODIUM 2,000 MG in DEXTROSE 5% 50 ML IV SCH (22:07)
[2022-04-23] MEDS: ACETAMINOPHEN 325 MG TAB PO PRN ×3 (08:29→20:55)
[2022-04-23] MEDS: CHOLECALCIFEROL 1,000 UNITS 25 MCG TAB PO SCH (08:29)
[2022-04-23] MEDS: lisinopril 10 MG TAB PO SCH (08:29)
[2022-04-23 08:37] LABS: Albumin Globulin Ratio 1.3 (0.9-2); Albumin Level 3.4 gm/dl (3.4-5.0); Bilirubin,Total 0.6 mg/dl (0.2-1.0); C Reactive Protein 15.59 mg/dl (0-0.5); Calcium 8.7 mg/dl (8.5-10.1); Creatinine Clr Calc Pharmacy 216.2 ml/min; Est GFR (African American) 131.7 ml/min; Est GFR (Non-African American) 113.6 ml/min; Globulin 2.7 gm/dl (2.5-4.0); Magnesium 1.7 mg/dl (1.7-2.4); Phosphorus 1.9 mg/dl (2.5-4.9); Potassium 3.6 mmol/L (3.5-5.1); Total Protein 6.1 gm/dl (6.0-8.3)
[2022-04-23 08:43] LABS: Hematocrit (blood only) 40.6 % (40.1-51.0); Hemoglobin 14.1 g/dl (14.0-18.0); Mean Corpuscular Hemoglobin 30.1 pg (25.0-34.0); Mean Corpuscular Hgb Conc 34.7 g/dL (32.0-36.0); Mean Corpuscular Volume 86.6 fL (80.0-100.0); Mean Platelet Volume 9.7 fL (9.4-12.4); Platelet Count 182 K/uL (130-400); RDW Coefficient of Variation 13.3 % (11.5-14.5); RDW Standard Deviation 41.5 fL (36.4-46.3); Red Blood Count 4.69 M/uL (4.63-6.08); White Blood Count 11.57 K/ul (4.8-10.8)
[2022-04-23] MEDS: INSULIN ASPART PER UNIT SC SCH ×4 (09:11→20:46)
[2022-04-23] MEDS: ENOXAPARIN INJ 40 MG/0.4 ML SYR SQ SCH ×2 (09:16→21:37)
[2022-04-23] MEDS: IBUPROFEN 600 MG TAB PO PRN ×2 (09:16→17:59)
[2022-04-23 09:34] LABS: Basophils # (auto) 0.03 K/uL (0-0.2); Basophils % (auto) 0.3 %; Eosinophils # (auto) 0.17 K/uL (0-0.50); Eosinophils % (auto) 1.5 %; Immature Granulocytes # (auto) 0.05 K/uL (0.00-0.02); Immature Granulocytes % (auto) 0.4 %; Lymphocytes % (auto) 12.1 %; Monocytes % (auto) 12.1 %; Neutrophils # (auto) 8.52 K/uL (1.4-6.5); Neutrophils % (auto) 73.6 %
[2022-04-23] MEDS: ceFAZolin 2000MG 2,000 MG/15 ML SYR IV SCH ×2 (11:08→17:50)
[2022-04-23] MEDS: CLINDAMYCIN/D5W 900 MG/50 ML BAG IV SCH ×2 (11:09→18:21)
[2022-04-23] MEDS: POT PHOSPHATE MONOBASIC W/ SOD TAB PO SCH ×3 (12:44→20:52)
--- NOTE | 2022-04-23 14:23 | Hospitalist Progress Note ---
Date of Service April 23, 2022 Assessment & Plan (1) Cellulitis of left leg: Plan: Nonpurulent cellulitis; invariably strepWBC better but CRP higher; to cefazolin, clinda for toxin; stop daptomycin; also, what ever worth MRSA nasal negative (2) Sepsis: Plan: Without organ dysfunction, without septic shocksecondary to cellulitis; improved; as above (3) LISA (obstructive sleep apnea): Plan: - Uses CPAP at night, brought home machine with him. (4) Hypertension: Plan: - Agents on hold; observe with current acute infective illness (5) Prediabetes: Plan: - Hold metformin for tonight. - Will order Accuchecks and SSI. - A1c 6.2 (6) Morbid obesity with BMI of 45.0-49.9, adult: Plan: BMI 45.8adds to complexity; enoxaparin for DVT prevention (7) Electrolyte abnormality: Plan: Today hypophosphatemiareplace Admission and Anticipated Discharge Date Admission Date: April 21, 2022 Subjective Follow-up of fever, left lower extremity erythemahe does not feel improved Physical Exam Physical Exam: Constitutional and general: No acute distress, looks biologic age Head and face: No puffiness, atraumatic Eyes: No scleral icterus, extraocular movements normal Neck: Supple, no JVD Musculoskeletal: No acute joint swelling, no bony abnormalities Skin/dermatologic/integument: No rash, no purpura Hematologic and lymphatic: pallor +, no petechia Gastrointestinal/abdomen: Nondistended, soft, nonacute Neurologic: Cranial nerves intact, nonfocal Psychiatry: Awake, alert, pleasant, communicative Cardiovascular: Heart rhythm regular, no rub, no murmur, no gallop Respiratory: Chest movements equal, no use of accessory muscles, no adventitious sounds Extremities: Prominent erythema left leg and inner thigh Results & Data Results & Data ([facility]) Vital Signs (Past 12 Hours) Vital Signs Temp Pulse Resp BP Pulse Ox 04/23/22 07:27 37.0 C 84 18 145/91 H 95 Laboratory Results Laboratory Results - last 24 hr 04/22/22 04/22/22 04/23/22 16:54 20:45 07:47 WBC 11.57 H RBC 4.69 Hgb 14.1 Hct 40.6 MCV 86.6 MCH 30.1 MCHC 34.7 RDW Std Deviation 41.5 RDW Coeff of Nolan 13.3 Plt Count 182 MPV 9.7 Immature Gran % (Auto) 0.4 Neut % (Auto) 73.6 Lymph % (Auto) 12.1 [place] % (Auto) 12.1 Eos % (Auto) 1.5 Baso % (Auto) 0.3 Neut # (Auto) 8.52 H Lymph # (Auto) 1.40 [place] # (Auto) 1.40 H Eos # (Auto) 0.17 Baso # (Auto) 0.03 Immature Gran # (Auto) 0.05 H Sodium Potassium Chloride Carbon Dioxide Anion Gap BUN Creatinine Est Cr Clr Drug Dosing Est GFR ( Amer) Est GFR (Non-Af Amer) POC Glucose 114 H 111 H Fasting Glucose Calcium Phosphorus Magnesium Total Bilirubin AST ALT Alkaline Phosphatase C-Reactive Protein Total Protein Albumin Globulin Albumin/Globulin Ratio 04/23/22 04/23/22 04/23/22 07:47 08:18 12:10 WBC RBC Hgb Hct MCV MCH MCHC RDW Std Deviation RDW Coeff of Nolan Plt Count MPV Immature Gran % (Auto) Neut % (Auto) Lymph % (Auto) [place] % (Auto) Eos % (Auto) Baso % (Auto) Neut # (Auto) Lymph # (Auto) [place] # (Auto) Eos # (Auto) Baso # (Auto) Immature Gran # (Auto) Sodium 137 Potassium 3.6 Chloride 105 Carbon Dioxide 26 Anion Gap 6 BUN 11 Creatinine 0.73 Est Cr Clr Drug Dosing 216.2 Est GFR ( Amer) 131.7 Est GFR (Non-Af Amer) 113.6 POC Glucose 127 H 101 H Fasting Glucose 125 H Calcium 8.7 Phosphorus 1.9 L Magnesium 1.7 Total Bilirubin 0.6 AST 27 ALT 40 Alkaline Phosphatase 50 C-Reactive Protein 15.59 H Total Protein 6.1 Albumin 3.4 Globulin 2.7 Albumin/Globulin Ratio 1.3 PG Care Time/CCT Total # of Minutes Spent Total Time Spent with Patient: Total time spent is greater than 50% in coordination of care (as documented) at patient's floor/unit and/or counseling patient: Coding Level of Care Code 34314 Subseq Hosp Care Lvl 2 Diagnoses Cellulitis of left leg L03.116 Sepsis A41.9 LISA (obstructive sleep apnea) G47.33 Hypertension I10 Prediabetes R73.03 Morbid obesity with BMI of 45.0-49.9, adult E66.01; Z68.42 Electrolyte abnormality E87.8
[2022-04-24] MEDS: ceFAZolin 2000MG 2,000 MG/15 ML SYR IV SCH ×3 (02:06→17:57)
[2022-04-24] MEDS: CLINDAMYCIN/D5W 900 MG/50 ML BAG IV SCH ×3 (02:06→19:15)
[2022-04-24 07:02] LABS: Basophils # (auto) 0.03 K/uL (0-0.2); Basophils % (auto) 0.4 %; Eosinophils # (auto) 0.23 K/uL (0-0.50); Eosinophils % (auto) 3.3 %; Hematocrit (blood only) 40.2 % (40.1-51.0); Hemoglobin 13.9 g/dl (14.0-18.0); Immature Granulocytes # (auto) 0.04 K/uL (0.00-0.02); Immature Granulocytes % (auto) 0.6 %; Lymphocytes # (auto) 1.75 K/uL (1.2-3.4); Lymphocytes % (auto) 24.9 %; Mean Corpuscular Hemoglobin 30.5 pg (25.0-34.0); Mean Corpuscular Hgb Conc 34.6 g/dL (32.0-36.0); Mean Corpuscular Volume 88.2 fL (80.0-100.0); Mean Platelet Volume 9.4 fL (9.4-12.4); Monocytes # (auto) 0.96 K/uL (0.24-0.82); Monocytes % (auto) 13.7 %; Neutrophils # (auto) 4.01 K/uL (1.4-6.5); Neutrophils % (auto) 57.1 %; Platelet Count 192 K/uL (130-400); RDW Standard Deviation 42.2 fL (36.4-46.3); Red Blood Count 4.56 M/uL (4.63-6.08); White Blood Count 7.02 K/ul (4.8-10.8)
[2022-04-24 08:06] LABS: Albumin Globulin Ratio 1.3 (0.9-2); Albumin Level 3.3 gm/dl (3.4-5.0); Bilirubin,Total 0.5 mg/dl (0.2-1.0); C Reactive Protein 8.83 mg/dl (0-0.5); Calcium 8.4 mg/dl (8.5-10.1); Creatinine Clr Calc Pharmacy 207.6 ml/min; Est GFR (African American) 129.5 ml/min; Est GFR (Non-African American) 111.7 ml/min; Globulin 2.5 gm/dl (2.5-4.0); Magnesium 1.9 mg/dl (1.7-2.4); Phosphorus 3.8 mg/dl (2.5-4.9); Potassium 3.8 mmol/L (3.5-5.1); Total Protein 5.8 gm/dl (6.0-8.3)
[2022-04-24] MEDS: INSULIN ASPART PER UNIT SC SCH ×4 (08:39→20:58)
[2022-04-24] MEDS: lisinopril 10 MG TAB PO SCH (08:40)
[2022-04-24] MEDS: POT PHOSPHATE MONOBASIC W/ SOD TAB PO SCH ×2 (08:40→12:44)
[2022-04-24] MEDS: CHOLECALCIFEROL 1,000 UNITS 25 MCG TAB PO SCH (10:09)
[2022-04-24] MEDS: ENOXAPARIN INJ 40 MG/0.4 ML SYR SQ SCH ×2 (10:09→21:36)
--- NOTE | 2022-04-24 14:09 | Hospitalist Progress Note ---
Date of Service April 24, 2022 Assessment & Plan (1) Cellulitis of left leg: Plan: Nonpurulent cellulitis; invariably strepWBC and CRP both better; yesterday switched to cefazolin, clinda for toxinswould consider short course of latter, about 3 days; note, what ever worth MRSA nasal negative (2) Sepsis: Plan: Without organ dysfunction, without septic shocksecondary to cellulitis; resolved (3) LISA (obstructive sleep apnea): Plan: - Uses CPAP at night, brought home machine with him. (4) Hypertension: Plan: - BP now normal, resume home dose of lisinopril (5) Prediabetes: Plan: - Accuchecks and SSI. - A1c 6.2 (6) Morbid obesity with BMI of 45.0-49.9, adult: Plan: BMI 45.8adds to complexity lifestyle modification; enoxaparin for DVT prevention Admission and Anticipated Discharge Date Admission Date: April 21, 2022 Subjective Follow-up of fever, left lower extremity erythemadoing better Physical Exam Physical Exam: Constitutional and general: No acute distress, looks biologic age Head and face: No puffiness, atraumatic Eyes: No scleral icterus, extraocular movements normal Neck: Supple, no JVD Musculoskeletal: No acute joint swelling, no bony abnormalities Skin/dermatologic/integument: No rash, no purpura Hematologic and lymphatic: pallor +, no petechia Gastrointestinal/abdomen: Nondistended, soft, nonacute Neurologic: Cranial nerves intact, nonfocal Psychiatry: Awake, alert, pleasant, communicative Cardiovascular: Heart rhythm regular, no rub, no murmur, no gallop Respiratory: Chest movements equal, no use of accessory muscles, no adventitious sounds Extremities: Prominent erythema left leg and inner thighbetter Results & Data Results & Data ([facility]) Vital Signs (Past 12 Hours) Vital Signs Temp Pulse Resp BP Pulse Ox 04/24/22 07:08 37.1 C 66 18 137/86 96 Laboratory Results Laboratory Results - last 24 hr 04/23/22 04/23/22 04/24/22 17:02 20:41 06:37 WBC 7.02 RBC 4.56 L Hgb 13.9 L Hct 40.2 MCV 88.2 MCH 30.5 MCHC 34.6 RDW Std Deviation 42.2 RDW Coeff of Nolan 13.0 Plt Count 192 MPV 9.4 Immature Gran % (Auto) 0.6 Neut % (Auto) 57.1 Lymph % (Auto) 24.9 [place] % (Auto) 13.7 Eos % (Auto) 3.3 Baso % (Auto) 0.4 Neut # (Auto) 4.01 Lymph # (Auto) 1.75 [place] # (Auto) 0.96 H Eos # (Auto) 0.23 Baso # (Auto) 0.03 Immature Gran # (Auto) 0.04 H Sodium Potassium Chloride Carbon Dioxide Anion Gap BUN Creatinine Est Cr Clr Drug Dosing Est GFR ( Amer) Est GFR (Non-Af Amer) POC Glucose 105 H 109 H Fasting Glucose Calcium Phosphorus Magnesium Total Bilirubin AST ALT Alkaline Phosphatase C-Reactive Protein Total Protein Albumin Globulin Albumin/Globulin Ratio 04/24/22 04/24/22 04/24/22 06:37 08:15 12:08 WBC RBC Hgb Hct MCV MCH MCHC RDW Std Deviation RDW Coeff of Nolan Plt Count MPV Immature Gran % (Auto) Neut % (Auto) Lymph % (Auto) [place] % (Auto) Eos % (Auto) Baso % (Auto) Neut # (Auto) Lymph # (Auto) [place] # (Auto) Eos # (Auto) Baso # (Auto) Immature Gran # (Auto) Sodium 138 Potassium 3.8 Chloride 107 Carbon Dioxide 24 Anion Gap 7 BUN 12 Creatinine 0.76 Est Cr Clr Drug Dosing 207.6 Est GFR ( Amer) 129.5 Est GFR (Non-Af Amer) 111.7 POC Glucose 103 H 96 Fasting Glucose 112 H Calcium 8.4 L Phosphorus 3.8 D Magnesium 1.9 Total Bilirubin 0.5 AST 26 ALT 31 Alkaline Phosphatase 43 C-Reactive Protein 8.83 H Total Protein 5.8 L Albumin 3.3 L Globulin 2.5 Albumin/Globulin Ratio 1.3 PG Care Time/CCT Total # of Minutes Spent Total Time Spent with Patient: Total time spent is greater than 50% in coordination of care (as documented) at patient's floor/unit and/or counseling patient: Coding Level of Care Code 37113 Subseq Hosp Care Lvl 2 Diagnoses Cellulitis of left leg L03.116 Sepsis A41.9 LISA (obstructive sleep apnea) G47.33 Hypertension I10 Prediabetes R73.03 Morbid obesity with BMI of 45.0-49.9, adult E66.01; Z68.42
[2022-04-24] MEDS ORDERED: lisinopril 10 MG TAB PO ONE (14:11)
[2022-04-24] MEDS ORDERED: lisinopril 20 MG TAB PO SCH (14:15)
[2022-04-25] MEDS: ceFAZolin 2000MG 2,000 MG/15 ML SYR IV SCH ×2 (02:32→09:50)
[2022-04-25] MEDS: CLINDAMYCIN/D5W 900 MG/50 ML BAG IV SCH (02:37)
[2022-04-25 07:11] LABS: Basophils # (auto) 0.04 K/uL (0-0.2); Basophils % (auto) 0.6 %; Eosinophils # (auto) 0.22 K/uL (0-0.50); Hematocrit (blood only) 42.1 % (40.1-51.0); Hemoglobin 14.2 g/dl (14.0-18.0); Immature Granulocytes % (auto) 1.4 %; Lymphocytes % (auto) 33.2 %; Mean Corpuscular Hgb Conc 33.7 g/dL (32.0-36.0); Mean Platelet Volume 9.2 fL (9.4-12.4); Monocytes # (auto) 0.95 K/uL (0.24-0.82); Monocytes % (auto) 13.2 %; Neutrophils # (auto) 3.51 K/uL (1.4-6.5); Neutrophils % (auto) 48.6 %; Platelet Count 216 K/uL (130-400); RDW Coefficient of Variation 12.9 % (11.5-14.5); RDW Standard Deviation 42.2 fL (36.4-46.3); Red Blood Count 4.73 M/uL (4.63-6.08); White Blood Count 7.22 K/ul (4.8-10.8)
[2022-04-25 08:02] LABS: Albumin Globulin Ratio 1.3 (0.9-2); Albumin Level 3.4 gm/dl (3.4-5.0); Bilirubin,Total 0.4 mg/dl (0.2-1.0); C Reactive Protein 4.16 mg/dl (0-0.5); Calcium 8.6 mg/dl (8.5-10.1); Creatinine Clr Calc Pharmacy 171.5 ml/min; Est GFR (African American) 117.6 ml/min; Est GFR (Non-African American) 101.5 ml/min; Globulin 2.6 gm/dl (2.5-4.0); Phosphorus 4.8 mg/dl (2.5-4.9); Potassium 3.9 mmol/L (3.5-5.1)
[2022-04-25] MEDS ORDERED: lisinopril 20 MG TAB PO SCH (09:00)
[2022-04-25] MEDS: INSULIN ASPART PER UNIT SC SCH (09:19)
[2022-04-25] MEDS: CHOLECALCIFEROL 1,000 UNITS 25 MCG TAB PO SCH (09:19)
[2022-04-25] MEDS: ENOXAPARIN INJ 40 MG/0.4 ML SYR SQ SCH (09:50)
--- NOTE | 2022-04-25 14:07 | Discharge Summary ---
Date of Service April 25, 2022 Admission HPI Per Admitting Provider Garrett Wetzel is a 42-year-old male with LISA, hypertension, and pre-diabetes who presents today from home with fever for the past day. He was at at work this morning when suddenly he became very cold to the point that he was shaking. He developed body aches and noted some increasing redness and swelling of his left lower leg. He has no knowledge of any injury, wound, or animal/insect bite to his leg. Did not notice any symptoms until today. He does have chronic swelling to the left leg after being hospitalized last year for a cellulitis of the same leg which caused venous damage, however appears a bit more swollen today but not drastically different than baseline. He does not have any chest pain or tightness, shortness of breath, palpitations, calf pain, or history of blood clots. He had an extensive stay in [facility] ICU last May for septic shock secondary to a LLE cellulitis. Blood cultures remained negative then, had extensive workup which included MRI of spine and LP which were unrevealing. He had resolution with IV antibiotics. In ED, is febrile and tachycardic, mildly hypertensive. SPO2 >95% on room air. Significant for WBC 18.91, lactate 2.1. AST 46, ALT 64. Babesia labs pending. Anaplasmosis, Lyme, COVID/flu/RSV all negative. CXR unremarkable. Blood cultures sent. Principal Diagnosis Left leg cellulitis Discharge Exam Constitutional WD/WN, vitals as above Eyes EOM intact bilaterally; no conjunctival abnormality ENMT external ear and nose normal, oropharynx normal Neck trachea midline, no thyromegaly normal visual inspection Respiratory normal respiratory effort, lungs clear to auscultation no respiratory distress Cardiovascular RRR, no murmur, no edema Gastrointestinal (Abdomen) Inspection/Auscultation: abdomen normal to inspection; abdomen not distended Musculoskeletal no cyanosis or clubbing, extremities motor strength 5/5 Skin no rashes, warm and dry + erythema (Resolving - Well within borders of prior fernandez and more pink than red.) Neurologic moves all extremities and awake Psychiatric Orientation: alert, oriented to person and cooperative Discharge Data Allergies Allergy/AdvReac Type Severity Reaction Status Date / Time No Known Allergies Allergy Verified 04/21/22 17:46 Consultations 04/21/22 17:37 ED Decision to Admit Stat Ordered Studies 04/21/22 19:48 CT tib/fib LT wo con Urgent US venous doppler LE LT Urgent Hospital Course (1) Cellulitis of left leg: Nonpurulent cellulitis; invariably strepWBC and CRP both better; - Improved on cefazolin & clindamycin -> Discharged on cephalexin 750 mg PO TID x 4 days with agreement from pharmacy. - Given red-flag symptoms to return to care (more redness, fevers, chills, nausea, vomiting, etc.) Will see PCP next week. (2) Sepsis: Without organ dysfunction, without septic shocksecondary to cellulitis; resolved (3) LISA (obstructive sleep apnea): - Uses CPAP at night, brought home machine with him. (4) Hypertension: - BP now normal, resume home dose of lisinopril (5) Prediabetes: - Accuchecks and SSI. - A1c 6.2 (6) Morbid obesity with BMI of 45.0-49.9, adult: BMI 45.8adds to complexity lifestyle modification; enoxaparin for DVT prevention Total Time Total Time Spent Total Time Spent (In Minutes): 35 Discharge Plan Discharge Items Patient Disposition: Home - Self-Care Reason For Visit: CHILLS, SHOULDER PAIN, FEVER Discharge Diagnosis: Leg cellulitis (skin infection) Activity: Resume your previous activity Non-emergency contact: Primary Care Provider Call non-emergency contact if: your symptoms worsen and your temperature is above 101 Follow-up/Referrals: Willard Mora MD [Primary Care Provider] - Diet: Carb Consistent or DM2 Addtl Attending Provider Instructions: Mr. Wetzel, You were admitted with a leg skin infection (cellulitis). This improved with IV antibiotics, and we are sending you home on another 4 days worth of oral antibiotics. The first dose is today (04/25/2022) before bedtime, then three- times daily until completely gone. DO NOT stop the antibiotics even if the leg is looking completely healed. Take them until every dose has been taken. The infection is looking a lot better. Please monitor it, and if you see any worsening of the redness, please come back to the ER, or call your PCP right away. Please do so as well if you have fevers, sweats, nausea, vomiting, or other concerning symptoms. Please see your PCP next week to ensure you are doing well. Pending Studies at Discharge: No Stand-Alone Forms: [facility], Smoking Cessation Medications and DC Order Prescriptions: New cephalexin 750 mg capsule 750 mg PO TID 4 Days Qty: 12 RF: 0 Continued metformin 500 mg tablet 1,000 mg PO BID RF: 0 multivitamin Tablet 1 tab PO QAM RF: 0 cholecalciferol (vitamin D3) [Vitamin D3] 25 mcg (1,000 unit) Tablet 25 mcg PO QAM RF: 0 lisinopril-hydrochlorothiazide 20-25 mg tablet 1 tab PO QAM RF: 0 Discharge Orders: Discharge Order (Routine); Ordered 04/25/22 Ordered By: Rah Camacho/Other Patient Handouts: Prediabetes, 5 Steps for Eating Healthier Admission Data Admit Date/Time: 04/21/22 19:14 Attending Provider: Rah Venegas Admit Provider: Brent Camp Primary Care Provider: Willadr Mora Other Providers: Rah Venegas Other Interventions: Discharge Summary Assessment (RN) Last Done: 04/25/22 09:07 Coding Level of Care Code D/C DAY MANAGEMENT >30 MINS Diagnoses Cellulitis of left leg L03.116 Sepsis A41.9 LISA (obstructive sleep apnea) G47.33 Hypertension I10 Prediabetes R73.03 Morbid obesity with BMI of 45.0-49.9, adult E66.01; Z68.42
== END 2022-04-25 10:26 | disposition home or self-care (01) | DRG 872 ==
LOC: ED 13:55 → SUATTDRO 19:14 → 3N 19:14